=== PATIENT | male | born 1955 | race Caucasian/White ===

== ENCOUNTER → 2017-08-29 09:20 | Outpatient (CLI) | payer OTHER, SELFPAY ==
--- NOTE | 2017-08-29 | DI.RAD.S_ITS ---
PROCEDURE: XR CHEST 2V INDICATIONS: COUGH TECHNIQUE: 2 views of the chest were acquired. COMPARISON: None. FINDINGS: Surgical changes and devices: None. Lungs and pleura: No pleural effusions or pneumothorax. Lungs are clear. Mediastinum: Mediastinal contours are normal. Heart size is normal. Bones and chest wall: No suspicious bony abnormalities. Soft tissues appear unremarkable. IMPRESSION: Normal for age, source of current symptoms is not seen. Dictated by: Eloy Pruitt M.D. on 08/29/2017 at 9:36 Approved by: Eloy Pruitt M.D. on 08/29/2017 at 9:36
== END ==
PROVIDERS: PCP Family Medicine; Visit Provider Family Medicine
DX: R05 Cough (principal)
CPT/HCPCS: 71046

== ENCOUNTER 2018-03-22 07:44 | Emergency (ER) | payer OTHER, SELFPAY ==
[2018-03-22 07:51] VITALS: BP 141/84; PULSE 66; RESP 16; TEMP 36.4; O2SAT 97; BMI 26.5
--- NOTE | 2018-03-22 08:07 | ED.EPISTAXIS ---
HPI - Epistaxis General Chief complaint: Nasal Problem Stated complaint: NOSEBLEED ALL NIGHT Time Seen by Provider: 03/22/18 07:54 Source: patient Mode of arrival: ambulatory Limitations: no limitations History of Present Illness HPI Narrative: Patient is a 63-year-old male who presents with epistaxis. He says been off and on for the last 4 days. It was quite bad initially on Monday. However Monday and Monday was able to go to work at started again last night. He says about every hour and a half he has bleeding. he currently has tissue paper stuffed up his nostrils and the bleeding seems to be controlled. It was previously quite a lot of blood is and was draining down his throat. It is no longer draining down his throat and the bleeding seems to have stopped. He does take Aleve twice a day but no Other anti-platelet or anticoagulation medication. blood pressure is controlled. MD complaint: epistaxis Related Data Allergies Allergy/AdvReac Type Severity Reaction Status Date / Time No Known Drug Allergies Allergy Verified 03/22/18 07:51 Review of Systems Constitutional Denies chills, Denies fever(s), Denies lethargy and Denies weakness Eyes Denies change in vision, Denies eye discharge, Denies irritation and Denies loss of vision ENT Ears, Nose, Mouth, and Throat: Reports as per HPI and Reports epistaxis Cardiovascular Denies dyspnea and Denies dyspnea on exertion Respiratory Denies cough, Denies dyspnea, Denies dyspnea on exertion and Denies wheezing Gastrointestinal Gastrointestinal: Denies abdominal pain, Denies change in bowel habits, Denies diarrhea, Denies nausea and Denies vomiting Musculoskeletal Denies back pain, Denies muscle weakness, Denies numbness and Denies tingling Integumentary/Breasts Denies pruritus, Denies erythema, Denies rash and Denies wounds Neurologic Denies loss of vision, Denies numbness, Denies tingling and Denies weakness Allergic/Immunologic Denies wheezing PFSH Medical History Hyperlipidemia (Acute) Social History Smoking Status: Never smoker alcohol intake: never substance use type: does not use Exam Initial Vital Signs Initial Vital Signs: Vital Signs Temperature 97.6 F 03/22/18 07:51 Pulse Rate 66 03/22/18 07:51 Respiratory Rate 16 03/22/18 07:51 Blood Pressure 141/84 H 03/22/18 07:51 Pulse Oximetry 97 12/06/18 07:51 Const General: cooperative and well developed Nutritional Appearance: well nourished Orientation: alert, awake, oriented x3 and not confused HENMT Nose: septum normal, epistaxis ( no active bleeding at this time. Patient says it is mostly from the right side) and nasal polyp ( bilateral) Throat: posterior oropharynx normal ( no blood) Neck Neck: normal visual inspection Cardio Rate: regular rate Rhythm: regular rhythm Heart Sounds: no click, no gallops, no murmurs and no rubs Pulses: normal peripheral pulses GI Inspection: non-distended Palpation: soft, no hepatosplenomegaly, No guarding, No pulsatile mass and No tender Auscultation: normal bowel sounds Course Vital Signs - 8 hr 03/22/18 07:51 Temperature 97.6 F Pulse Rate 66 Respiratory Rate 16 Blood Pressure 141/84 H Pulse Oximetry 97 MDM - Epistaxis MDM Narrative Medical decision making narrative: tissue was removed no active bleeding at this time. Patient is able to blow out all clots continues to not have bleeding. He is monitored. No active bleeding. Patient would like to go home. I have instructed him how to use Afrin and the nasal clamp. Discharge Plan Departure Patient Disposition: Home Clinical Impression: Epistaxis Discharge Date/Time: 03/22/18 08:56 Interventions: ED Discharge Assessment Last Done: 03/22/18 08:55 Instructions: DI for Nosebleed Activity Restrictions/Additional Instructions: *You have been diagnosed with nose bleed *What to do: if no should start bleeding again, apply clamp keep head tilted forward. once bleeding has slowed a little you may place some Afrin 2 squirts up nose and then again placed clamp the clamp in place for 30-60 minutes *Continue to take medications as directed *Follow up with your primary care provider in 2-3 days *Return to ER if you should have consistent bleeding despite clamp and Afrin bleeding for more than 60 min, blood running down throat or any new, worsening or concerning symptoms Referrals: Laura Flynn MD [Primary Care Provider] -
== END 2018-03-22 08:56 | disposition home or self-care (01) ==
PROVIDERS: Emergency Provider Emergency Medicine; PCP Family Medicine
DX: R04.0 Epistaxis (principal)
CPT/HCPCS: 99282

== ENCOUNTER → 2018-09-11 10:24 | Outpatient (CLI) | payer OTHER, SELFPAY ==
--- NOTE | 2018-09-11 | DI.US.S_ITS ---
PROCEDURE: US RENAL COMPLETE INDICATIONS: OTHER SPECIFIED DISORDERS OF KIDNEY AND URETER TECHNIQUE: Real-time scanning was performed of the kidneys and bladder, with image documentation. COMPARISON: None. FINDINGS: Kidneys: Kidneys are normal in size. Right kidney measures 12.8 cm long; left kidney measures 12.8 cm long. Right renal cortical thickness is 1.8 cm; left renal cortical thickness is 1.2 cm. Renal cortical echotexture is normal. No hydronephrosis or nephrolithiasis. No suspicious solid mass lesions. Bilateral renal cysts, largest of which is on the left measuring up to 3.5 cm. Debris within the urinary bladder there are multiple bladder wall trabeculations. Bladder: Pre-void bladder volume is 192 mL. Post-void residual is 13 mL. Pre-void images demonstrate no intraluminal masses or stones. On pre-void images, bilateral ureteral jets are noted with color Doppler interrogation. (Of note, ureteral jets may not be detectable in up to 25% of cases due to insufficient differences in specific gravity between ureteral and bladder urine). Miscellaneous: No free pelvic fluid. IMPRESSION: 1. Debris within the urinary bladder which can be associated with cystitis. Correlate with urine sample. 2. Bladder trabeculations. 3. Normal kidneys and bilateral renal cysts. Dictated by: Sai HOOPER Interpreted: Marci Smart MD on 09/11/2018 at 15:42 Approved by: Marci Smart M.D. on 09/11/2018 at 16:03
== END ==
PROVIDERS: PCP Family Medicine; Visit Provider Family Medicine
DX: N28.89 Other specified disorders of kidney and ureter (principal); N32.89 Other specified disorders of bladder; N28.1 Cyst of kidney, acquired
CPT/HCPCS: 76770

== ENCOUNTER → 2018-09-20 05:53 | Outpatient (CLI) | payer OTHER, SELFPAY ==
--- NOTE | 2018-09-20 | DI.MRI.S_ITS ---
PROCEDURE: MR LUMBAR SPINE WO CON INDICATIONS: Radiculopathy, lumbosacral region TECHNIQUE: Noncontrast sagittal T1 spin echo and T2 fast echo, sagittal STIR, axial T1 and T2 fast spin echo through the lumbar spine. In cases with scoliosis, additional coronal T2 fast spin echo may be performed. COMPARISON: None. FINDINGS: Image quality: Excellent. Alignment and Curvature: Mild dextroconvex scoliotic curvature is seen. Minimal retrolisthesis is seen at the L1-L2 and L2-L3 levels. Bone Marrow: Marrow is of normal overall signal. No acute vertebral body compression fractures. Spinal Cord: Conus medullaris terminates at the L1 level. Visualized cord demonstrates normal signal and size. Paraspinous Soft Tissues: No paravertebral masses. T12-L1: Normal appearance. L1-L2: Mild to moderate loss of disc height and disc signal are seen. Moderate to prominent disc bulge is seen at this level. Moderate bilateral neural foraminal narrowing is seen. Mild to moderate central canal narrowing is seen. L2-L3: Moderate loss of disc height is seen. Loss of disc signal is seen. Moderate disc bulge is seen, which is eccentric to the left. There is a left foraminal disc protrusion seen. There is moderate right-sided and moderate to severe left-sided neural foraminal narrowing seen. There is a degree of compression seen upon the exiting left L2 nerve root. Moderate central canal narrowing is seen. L3-L4: Mild loss of disc height is seen. Loss of disc signal is seen. Moderate generalized disc bulge is seen. Mild facet joint hypertrophy is seen. Moderate bilateral neural foraminal narrowing is seen, right worse than left. Mild to moderate central canal narrowing is seen. L4-L5: Moderate loss of disc height is seen. Loss of disc signal is seen. Moderate to prominent disc bulge is seen, which is eccentric to the right. Moderate facet joint hypertrophy is seen. There is associated mild hypertrophy of the ligamentum flavum. There is moderate left-sided and moderate to severe right-sided neural foraminal narrowing seen. There is a degree of compression seen upon the exiting right L4 nerve root. Moderate central canal narrowing is seen. L5-S1: Moderate loss of disc height is seen. Loss of disc signal is seen. Moderate generalized disc bulge is seen. Moderate facet joint hypertrophy is seen. Moderate to severe bilateral neural foraminal narrowing is seen, left worse than right. There is a degree of compression seen upon the exiting nerve roots. Mild central canal narrowing is seen. IMPRESSION: Multiple levels of lumbar spine degenerative change are seen, which are overall most prominent at the L5-S1 level, where there is compression seen upon exiting bilateral L5 nerve roots. Dictated by: Crow Harris M.D. on 09/20/2018 at 8:51 Approved by: Crow Harris M.D. on 09/20/2018 at 8:55
== END ==
PROVIDERS: PCP Family Medicine; Visit Provider Family Medicine
DX: M47.27 Other spondylosis with radiculopathy, lumbosacral region (principal)
CPT/HCPCS: 72148

== ENCOUNTER → 2018-11-14 18:10 | Outpatient (ROUT) | payer OTHER, SELFPAY | PROVIDERS: PCP Family Medicine; Visit Provider Family Medicine | DX: R10.9 Unspecified abdominal pain (principal) | CPT/HCPCS: 87086 ==

== ENCOUNTER 2019-01-29 14:01 | Outpatient (CLI) | payer OTHER, SELFPAY ==
[2019-01-29] VITALS (11 sets, daily range): BP systolic 137–169; BP diastolic 83–109; PULSE 59–85; RESP 16–60; TEMP 36.2–36.7; O2SAT 94–100
--- NOTE | 2019-01-29 14:08 | DI.RAD.S_ITS ---
PROCEDURE: PAIN L/S TRANSFORAMINAL INJECT INDICATIONS: INTERVERTEBRAL DISC DISPLACEMENT FINDINGS: Fluoroscopic spot filming was performed to verify placement of spinal needles at the right L1-2 neural foramen level(s), as labeled on the films. Appropriate location(s) of the needle tip(s) was confirmed by injection of iodinated contrast. IMPRESSION: Successful needle tip localization at the right L1-L2 neural foramen region for epidural steroid injection. Dictated by: Eloy Pruitt M.D. on 01/29/2019 at 16:12 Approved by: Eloy Pruitt M.D. on 01/29/2019 at 16:13
[2019-01-29] MEDS: MIDAZOLAM 5 MG/5 ML VIAL IV (14:38)
[2019-01-29] MEDS: fentaNYL 100 MCG/2 ML INJ 50 MCG IV (14:38)
[2019-01-29] MEDS: IOPAMIDOL 15 ML VIAL 3 ML INJ (14:43)
[2019-01-29] MEDS: BUPIVACAINE 0.25% (PF) VIAL 2 ML INJ (14:43)
[2019-01-29] MEDS: DEXAMETHASONE 10 MG/ML VIAL 20 MG INJ (14:44)
[2019-01-29] MEDS: BETAMETHASONE 30 MG/5 ML MDV 6 MG INJ (14:44)
--- NOTE | 2019-01-29 14:47 | PC.NURSE ---
ASSISTING PT OFF TABLE AND TRANSPORTING TO POST PROC AREA IN STABLE CONDITION. PASSING RN CARE OF PT OFF TO AMRIT Trevizo RN.
--- NOTE | 2019-01-29 14:54 | P.PCN_ITS ---
Procedures Date/Time Date of procedure: 01/29/19 Time of procedure: 14:55 General Procedure description: Operative Note PREOP DIAGNOSIS 1. FORAMINAL STENOSIS WITH LE SYMPTOMS, POST OP DIAGNOSIS 1. FORAMINAL STENOSIS WITH LE SYMPTOMS, PROCEDURES 1. FLUOROSCOPICALLY GUIDED CONTRAST CONTROLLED TRANSFORAMINAL EPIDURAL STEROID INJECTION - Right L1/2 TFESI SURGEON: Giancarlo Mccrary, DO INDICATIONS Lyle is referred by Dr. Flynn for treatment of Foraminal Stenosis with right LE Symptoms FINDINGS Foraminal Nerve Root Compression secondary to disc disease and facet hypertrophy DESCRIPTION OF PROCEDURE Following review of allergy and review of potential side effects and complications, including, but not necessarily limited to, infection, allergic reaction, local tissue breakdown, stroke, temporary or permanent nerve injury, p aralysis, and possible , the patient indicated that the patient understood and agreed to proceed. An informed consent document was signed by the patient, witnessed by a nurse, and placed in the patient's chart. Additionally, other treatment options including medications, modalities, and physical therapy were reviewed with the patient. After review of previous anaesthesic history and IV conscious sedation the patient was deemed safe to proceed with todays procedure with IV conscious sedation as ASA class II designation. Safety time-out was performed to confirm patient ID, procedure to be performed and site of procedure. IV sedation was accomplished with a combination of 2mg of Versed and 50mcg of Fentanyl was administered by the RN after DO order, titrated to patient comfort during the course of the procedure while the patient remained responsive to all verbal commands In the prone position following sterile prep and drape of the lumbar region, the right L1/2 posterior neuroforamen was identified fluoroscopically. The skin was anesthetized via a 25-gauge 1.5-inch needle with 1% lidocaine solution. At this point, a 25-gauge 3.5-inch spinal needle was atraumatically introduced and advanced under fluoroscopic guidance through the posterior right L1/2 neuroforamen to approximately the anterior aspect of the canal. Depth was confirmed on lateral view. Following negative aspiration, injection of approximately 1.5 cc of Isovue 200 under live fluoroscopy in the AP view confirmed excellent flow along the nerve root, into the epidural space without vascular or intrathecal uptake observed Radiological data, including multiple fluoroscopic views of the lumbosacral spine, reveal a spinal needle at the right L1/2 posterior neuroforamen. Subsequent views show flow of contrast material flowing superiorly and inferiorly along the nerve root confirming epidural flow. Subsequently, a test dose of 1.5 cc of 1% lidocaine solution was administered and patient was observed for two minutes for signs or symptoms of complications, including abdominal pain, shortness of breath, bilateral upper or lower extremity weakness, nausea and vomiting, prior to steroid injection. At this point, a total of 3cc or 20mg of dexamethasone and 6mg of betamethasone was injected without incident. The patient tolerated the procedure well without signs or symptoms of complications prior to transfer to the recovery area continued monitoring without incident. The patient was then transferred to the recovery area where they were observed for an appropriate time after the injection. The patient reported a VAS score of 7 prior to the procedure and a post-procedure VAS of 0. Total Fluoroscopy Time: 24.2 seconds Total Conscious Sedation Time: 24min POST OP INSTRUCTIONS The patient was provided a Pain Log to continue to record their response to the target-specific procedure prior to follow-up visit with their referring physician. Additionally, specific post-injection care instructions and a contact number to our office were provided if concerns arise regarding possible complications associated with the procedure are suspected. Giancarlo Mccrary DO Complications: none Complications: none
--- NOTE | 2019-01-29 15:34 | PC.NURSE ---
Discharge note: Patient arrived for post procedure monitoring. VSS, O2 sat WNL on RA. Pain level 1/10 achy discomfort. Patient stated that he feels comfortable. Denies any unusual numbness or tingling to lower extremities. Stood and transfered to wheelchair without difficulty. Tolerating po without any nausea. Discharge instructions reviewed with patient and with good understanding. Stable for discharge to home.
--- NOTE | 2019-01-29 15:58 | PC.NURSE ---
Discharge note: Patient arrived for post procedure monitoring at 1523. VSS on arrival. O2 sat WNL, Awake and alert. Sitting in recliner, tolerating po without any nausea. Pain level 1/10. Denies any unusual numbness or tingling to lower extremities. Discharge instructions reviewed with patient and with good understanding. Able to transfer to wheelchair without difficulty. Gait steady. Stable for discharge to home, w/c to car.
== END 2019-01-29 15:43 ==
PROVIDERS: PCP Family Medicine; Visit Provider Physical Medicine & Rehabilitation
DX: M48.061 Spinal stenosis, lumbar region without neurogenic claudication (principal); M51.16 Intervertebral disc disorders with radiculopathy, lumbar region
CPT/HCPCS: 64483; 99152; J0702; J1100; J2250; J3010

== ENCOUNTER → 2019-09-10 14:09 | Outpatient (CLI) | payer OTHER, SELFPAY ==
--- NOTE | 2019-09-10 | DI.RAD.S_ITS ---
PROCEDURE: XR RIBS LT MIN 3V W CXR1V INDICATIONS: LEFIT RIB PAIN S/P FALL TECHNIQUE: 2 views of the left ribs were acquired, along with a single view chest. COMPARISON: None. FINDINGS: Surgical changes and devices: None. Bones and chest wall: Lateral left sixth and eighth rib fractures. Lungs and pleura: No pleural effusions or pneumothorax. Lungs appear clear. Mediastinum: Mediastinal contours appear normal. Heart size is normal. IMPRESSION: Left sixth and eighth rib fractures as above No pneumothorax Dictated by: Narayan Mathew M.D. on 09/10/2019 at 15:41 Approved by: Narayan Mathew M.D. on 09/10/2019 at 16:00
== END ==
PROVIDERS: PCP Family Medicine; Referring Provider Family Medicine; Visit Provider Family Medicine
DX: R07.81 Pleurodynia (principal); S22.42XA Multiple fractures of ribs, left side, initial encounter for closed fracture; W19.XXXA Unspecified fall, initial encounter
CPT/HCPCS: 71101

== ENCOUNTER → 2019-09-16 09:35 | Outpatient (CLI) | payer OTHER, SELFPAY ==
--- NOTE | 2019-09-16 | DI.US.S_ITS ---
PROCEDURE: US RENAL COMPLETE INDICATIONS: RENAL CYST TECHNIQUE: Real-time scanning was performed of the kidneys and bladder, with image documentation. COMPARISON: [facility], MR, MR LUMBAR SPINE WO CON, 09/20/2018, 6:32. [facility], US, US RENAL COMPLETE, 09/11/2018, 11:10. FINDINGS: Kidneys: Kidneys are normal in size. Right kidney measures 13.1 cm long; left kidney measures 12.8 cm long. Right renal cortical thickness is 2.0 cm; left renal cortical thickness is 2.1 cm. Renal cortical echotexture is normal. No hydronephrosis or nephrolithiasis. No suspicious solid mass lesions. 2 right renal cyst present, unchanged from prior examination with the largest measuring up to 12 mm. 2 left renal cyst present, each of which has slightly increased in size with the largest measuring up to 4.5 cm. Bladder: Pre-void bladder volume is 656 mL. Post-void residual is 111 mL. Pre-void images demonstrate no intraluminal masses or stones. On pre-void images, bilateral ureteral jets are noted with color Doppler interrogation. (Of note, ureteral jets may not be detectable in up to 25% of cases due to insufficient differences in specific gravity between ureteral and bladder urine). Miscellaneous: No free pelvic fluid. IMPRESSION: 1. Bilateral renal cysts, two which on the left have increased in size largest measuring up to 4.5 cm. Dictated by: Sai Campbell [facility] Interpreted: Satya Pereyra MD on 09/16/2019 at 13:00 Approved by: Satya Pereyra M.D. on 09/16/2019 at 15:40
== END ==
PROVIDERS: PCP Family Medicine; Referring Provider Urology; Visit Provider Urology
DX: N28.1 Cyst of kidney, acquired (principal)
CPT/HCPCS: 76770

== ENCOUNTER → 2020-12-08 16:26 | Outpatient (CLI) | payer OTHER, SELFPAY ==
--- NOTE | 2020-12-08 | DI.RAD.S_ITS ---
PROCEDURE: XR CHEST 2V INDICATIONS: History of COVID Infection TECHNIQUE: 2 views of the chest were acquired. COMPARISON: [facility], CR, XR RIBS LT MIN 3V W CXR1V, 09/10/2019, 14:13. [facility], CR, XR CHEST 2V, 08/29/2017, 9:24. FINDINGS: Surgical changes and devices: None. Lungs and pleura: Lungs are clear. No pleural effusions or pneumothorax. Mediastinum: Mediastinal contours are normal. Heart size is normal. Bones and chest wall: Multiple remote healed bilateral posterior rib fractures. No suspicious bony abnormalities. Soft tissues appear unremarkable. IMPRESSION: No acute cardiopulmonary process demonstrated radiographically. No acute airspace opacity demonstrated. Dictated by: John Olsen M.D. on 12/08/2020 at 16:44 Approved by: John Olsen M.D. on 12/08/2020 at 16:46
== END ==
PROVIDERS: PCP Family Medicine; Referring Provider Family Medicine; Visit Provider Family Medicine
DX: Z09 Encounter for follow-up examination after completed treatment for conditions other than malignant neoplasm (principal); Z86.16 Personal history of COVID-19
CPT/HCPCS: 71046

== ENCOUNTER → 2020-12-17 08:00 | Outpatient (CLI) | payer OTHER, SELFPAY ==
--- NOTE | 2020-12-17 | DI.ECHO.S_ITS ---
[facility]+ [facility] +---------+ : : [address] [place] : : : : [id number] : : : : Phone: [phone] Echocardiogram Report + + :Name: ANTHONY GARCIA Study Date: 12/17/2020 Height: 70.5 in: :[facility] ReadingLocation: Weight: 196 lb : : Gender: Male BSA: 2.1 m2 : :: 1955 Age: 65 yrs BP: 153/96 mmHg: :Reason For Study: SHORTNESS OF BREATH : :Ordering Physician: YANIRA, : :JUSTO Performed By: Ara Cox : :Referring: JUSTO DOYLE : + + Interpretation Summary 1) Normal left ventricular thickness, size, wall motion, and systolic function (EF 60-65%). 2) Normal right ventricular size and function. 3) There is mild aortic regurgitation. 4) Pulmonary artery pressures cannot be estimated because of the lack of a measurable TR jet velocity. 5) No prior Echo available for comparison. Procedure: A two-dimensional transthoracic echocardiogram with color flow and Doppler was performed. The study quality was technically adequate. There is no prior echocardiogram noted for this patient. The patient was in sinus rhythm with heart rates between 57-69 bpm during the exam. Left Ventricle: The left ventricle is normal in size and wall thickness. The ejection fraction is estimated to be 55-60%. There are no focal wall motion abnormalities. Right Ventricle: The right ventricle is normal in size and function. Atria: The left atrium is moderately dilated. Right atrial size is normal. There is no Doppler evidence for an interatrial shunt. Mitral Valve: The mitral valve is normal in structure and function. There is trace mitral regurgitation. Aortic Valve: The aortic valve is trileaflet. The aortic valve opens well. There is no aortic valve stenosis. There is mild aortic regurgitation. Tricuspid Valve: The tricuspid valve is normal in structure and function. There is mild tricuspid regurgitation. Pulmonary artery pressures cannot be estimated because of the lack of a measurable TR jet velocity. Pulmonic Valve: The pulmonic valve leaflets are thin and pliable; valve motion is normal. There is mild pulmonic regurgitation. Great Vessels: The aortic root is normal size. The dimensions of the ascending aorta are normal. The IVC is of normal diameter and collapses greater than 50% with a sniff. This suggests a low right atrial pressure of 3 mm Hg. Pericardium/ Pleura There is no pericardial effusion. There is no pleural effusion. MMode/2D Measurements & Calculations LVIDd: 5.2 cm LVOT diam: 2.1 cm LVIDs: 3.7 cm Ao root diam: 3.4 cm FS: 28.8 % asc Aorta Diam: 3.2 cm IVSd: 1.2 cm Ao Arch Diam (Prox Trans): 4.1 cm LVPWd: 0.90 cm LV soto. diameter/BSA (cm/m^2): 2.5 LV sys. diameter/BSA (cm/m^2): 1.8 LA A2 area: 23.3 cm2 RA long axis: 5.2 cm LA A4 area: 19.9 cm2 RA area: 14.6 cm2 LA length (vol): 5.3 cm RA vol: 34.5 ml LA vol: 74.8 ml RA : 16.6 ml/m2 LA vol index: 36.0 ml/m2 IVC diam: 1.2 cm RVD1 (basal): 3.7 cm TAPSE: 2.2 cm Doppler Measurements & Calculations Ao V2 max: 151.5 cm/sec LVOT Max Onur: 100.4 cm/sec Ao V2 mean: 112.4 cm/sec LV V1 max P.0 mmHg Ao max P.2 mmHg LV V1 VTI: 21.3 cm Ao mean P.5 mmHg RUSS(I,D): 2.2 cm2 Ao V2 VTI: 33.4 cm RUSS(V,D): 2.2 cm2 sev ratio: 0.64 RUSS indexed to BSA (cm^2/m^2): 1.0 AI P1/2t: 833.1 msec AI dec slope: 163.2 cm/sec2 MV E max onur: 51.8 cm/sec TR max onur: 233.9 cm/sec MV A max onur: 81.9 cm/sec TR max P.9 mmHg MV E/A: 0.63 PA V2 max: 106.5 cm/sec Med Peak E' Onur: 5.1 cm/sec PA V2 mean: 72.9 cm/sec E/E' med: 10.2 PA mean P.3 mmHg Lat Peak E' Onur: 7.7 cm/sec PA pr(Accel): 25.9 mmHg E/E' lat: 6.7 E/e' average: 8.5 MV dec time: 0.23 sec SV(LVOT): 72.1 ml Reading Physician:09:42 AM
== END ==
PROVIDERS: PCP Family Medicine; Referring Provider Family Medicine; Visit Provider Family Medicine
DX: I08.2 Rheumatic disorders of both aortic and tricuspid valves (principal); R06.02 Shortness of breath
CPT/HCPCS: 93306

== ENCOUNTER → 2022-03-22 08:17 | Outpatient (CLI) | payer MEDICARE, SELFPAY ==
--- NOTE | 2022-03-22 08:21 | DI.US.S_ITS ---
PROCEDURE: US CAROTID DOPPLER BI INDICATIONS: PERIPHERAL VASCULAR DISEASE TECHNIQUE: Color and pulse Doppler interrogation was performed of both carotid systems, with image documentation and velocity measurements. COMPARISON: None. FINDINGS: Stenosis calculations are based on SRU (Society of Radiologists in Ultras[employer]) criteria. The flow velocities and the arterial waveforms are normal within both carotid arterial systems. Atherosclerotic plaque is seen on both sides. The estimated degree of internal carotid artery stenosis is less than 50%. Antegrade flow is confirmed within both vertebral arteries. IMPRESSION: No hemodynamically significant stenosis is seen. Atherosclerotic plaque is noted bilaterally. Dictated by: Crow Harris M.D. on 03/22/2022 at 11:43 Approved by: Crow Harris M.D. on 03/22/2022 at 11:43
== END ==
PROVIDERS: PCP Family Medicine; Referring Provider Family Medicine; Visit Provider Family Medicine
DX: I73.9 Peripheral vascular disease, unspecified (principal)
CPT/HCPCS: 93880

== ENCOUNTER → 2023-11-30 12:14 | Outpatient (CLI) | payer MEDICARE, SELFPAY ==
--- NOTE | 2023-11-30 12:15 | DI.US.S_ITS ---
PROCEDURE: US RENAL COMPLETE INDICATIONS: RENAL CYST TECHNIQUE: Real-time scanning was performed of the kidneys and bladder, with image documentation. COMPARISON: [facility], , RENAL COMPLETE, 09/16/2019, 10:13. FINDINGS: Kidneys: Kidneys are normal in size. Right kidney measures 13.1 cm long; left kidney measures 12.7 cm long. Right renal cortical thickness is 0.9 cm; left renal cortical thickness is 1.8 cm. Renal cortical echotexture is normal. No hydronephrosis or nephrolithiasis. No suspicious solid mass lesions. 2.4 cm cyst with a fine septation arises from the right upper pole. A simple cyst measuring 1.6 cm arises from the lower pole exophytically. Anterior lower pole left renal cyst is bilobed or septated and now measures 3.4 cm in maximal diameter. A posterior lower pole cyst is septated and measures 3.4 cm. Bladder: Pre-void bladder volume is 193 mL. Post-void residual is 16 mL. Pre-void images demonstrate no intraluminal masses or stones. On pre-void images, bilateral ureteral jets are noted with color Doppler interrogation. (Of note, ureteral jets may not be detectable in up to 25% of cases due to insufficient differences in specific gravity between ureteral and bladder urine). Miscellaneous: No free pelvic fluid. IMPRESSION: Minimally complicated, finally septated renal cysts, fluctuating in size on each kidney. No suspicious renal mass or hydronephrosis. Dictated by: Tomeka Paula M.D. on 12/01/2023 at 21:44 Approved by: Tomeka Paula M.D. on 12/01/2023 at 21:55
== END ==
LOC: US 12:14
PROVIDERS: PCP Family Medicine; Referring Provider Family Medicine; Visit Provider Family Medicine
DX: N28.1 Cyst of kidney, acquired (principal)
CPT/HCPCS: 76770